=== PATIENT | female | born 1950 | race Caucasian/White ===

== ENCOUNTER 2016-04-22 08:07 | Day surgery (SDC) | payer OTHER ==
[~2016-04-22] VITALS: Ht 162.6 cm; Wt 72.6 kg
[~2016-04-22 08:07] MED LIST: CEFAZOLIN 1 GM IVPB PREMIX 50 ML IV ONE
[2016-04-22 09:02] VITALS: O2SAT 99
[2016-04-22] MEDS ORDERED: LR 1,000 ML IV SCH (12:44)
[2016-04-22] MEDS ORDERED: MORPHINE 2 MG/ML INJ. SYRINGE IVP PRN ×3 (12:45)
[2016-04-22] MEDS ORDERED: METOCLOPRAMIDE HCL 10 MG/2 ML VIAL IVP PRN (12:45)
[2016-04-22] MEDS ORDERED: HYDROmorphone 1 MG INJ. 1 MG/ML AMPUL IVP PRN (13:00)
[2016-04-22] MEDS ORDERED: HYDROcodone/ACETAMIN 5-325 MG TAB (NORCO/ VICODIN) PO PRN ×2 (13:00)
[2016-04-22] MEDS: MORPHINE 4 MG/ML INJ. SYRINGE ONE ×2 (13:18→13:25)
[2016-04-22] MEDS ORDERED: MORPHINE 4 MG/ML INJ. SYRINGE ONE (13:38)
[2016-04-22 13:55] VITALS: BP 128/65; PULSE 62; RESP 16
[2016-04-22] MEDS ORDERED: ONDANSETRON HCL 4 MG/2 ML VIAL ONE (14:00)
[2016-04-22] MEDS ORDERED: PROPOFOL 200MG/ 20ML VIAL (DIPRIVAN) IV ONE (14:00)
[2016-04-22] MEDS ORDERED: ceFAZolin SODIUM 1 GM VIAL ONE (14:00)
[2016-04-22] MEDS ORDERED: ROCURONIUM BROMIDE 10 MG/ML (ZEMURON) ONE (14:00)
[2016-04-22] MEDS ORDERED: MIDAZOLAM HCL 5 MG/5 ML VIAL ONE (14:00)
[2016-04-22] MEDS ORDERED: fentaNYL CITRATE 250 MCG/5 ML AMP ONE (14:00)
[2016-04-22] MEDS ORDERED: SEVOFLURANE 15 MIN GAS INH ONE (14:00)
[2016-04-22] MEDS ORDERED: HYDROcodone/ACETAMIN 5-325 MG TAB (NORCO/ VICODIN) ONE (14:03)
[2016-04-22] MEDS ORDERED: D5/0.45 NS 1,000 ML IV SCH (15:45)
== END 2016-04-22 16:12 | disposition home or self-care (01) ==
LOC: SOR 08:07 → SMU 08:07 → EDSTATUS 10:00 → SOR 16:12
PROVIDERS: ATTEND Colon & Rectal Surgery
DX: C50.911 Malignant neoplasm of unspecified site of right female breast (principal); E78.5 Hyperlipidemia, unspecified; K21.9 Gastro-esophageal reflux disease without esophagitis; I10 Essential (primary) hypertension; Z83.3 Family history of diabetes mellitus; Z83.49 Family history of other endocrine, nutritional and metabolic diseases; Z87.891 Personal history of nicotine dependence
CPT/HCPCS: 19081; 19302; 38900; 78195; 88307; 88329; 88333; A9541; J0690 ×2; J2250; J2270; J2405; J2704; J3010; J7120; 88305